=== PATIENT | male | born 1990 | race Caucasian/White ===

== ENCOUNTER 2020-04-09 03:43 | Emergency (ER) | payer BC ==
--- NOTE | 2020-04-09 03:52 | PDOC ---
Attending Attestation - Resident Resident Name: Maggy Briseno - ED Attending Attestation I have performed the following: I have examined & evaluated the patient, The case was reviewed & discussed with the resident, I agree w/resident's findings & plan - HPI HPI: 04/10/20 06:04 30 yo M PMH ADHD on Adderall presenting from home with reported tachycardia. States that he recently had his Adderall changed from 10mg to 15mg, took the higher dose for the first time yesterday morning. Drank three beers around 1999 and went to sleep. Woke up around 0200 (not unusual for him), then after waking, felt like his heart was racing. Checked HR on watch, was reported as 135 from baseline 65. Pt has a hx of anxiety. - Physicial Exam PE: 04/10/20 06:05 Normal exam normal ekg normal Heart rate - Medical Decision Making 04/10/20 06:05 Pt will be discharged; advised to follow with cardiology for Holter monitoring Discharge - Discharge Information Problems reviewed: Yes Clinical Impression/Diagnosis: Palpitations Condition: Stable Disposition: HOME - Follow up/Referral Referrals: Alexis Espinoza MD [Staff Physician] - - Patient Discharge Instructions Additional Instructions: You were seen with reported fast heart rate. Here in the ER, your vitals signs were normal, and your EKG did not show any acute abnormalities. Please follow up with your primary care doctor within one week. The number for a senior animal trainer is also listed in your paperwork, you may call to make an appointment. Return to the ER if you develop new or worsening symptoms. - Post Discharge Activity
--- NOTE | 2020-04-09 04:13 | PDOC ---
History of Present Illness - General Stated Complaint: TACHYCARDIA Time Seen by Provider: 04/09/20 03:51 - History of Present Illness Initial Comments: HPI: 04/09/20 04:06 30 yo M PMH ADHD on Adderall presenting from home with reported tachycardia. States that he recently had his Adderall changed from 10mg to 15mg, took the higher dose for the first time yesterday morning. Drank three beers around 1999 and went to sleep. Woke up around 0200 (not unusual for him), then after waking, felt like his heart was racing. Checked HR on watch, was reported as 135 from baseline 65. Grew anxious, came in. No cardiac history, FH with uncle who had heart attack in his late 40s. Specifically denies CP, SOB, N/V, diaphoresis. Endorses anxiety. ROS: GENERAL/CONSTITUTIONAL: denies fever, chills, diaphoresis, generalized weakness, malaise HEAD, EYES, EARS, NOSE AND THROAT: denies rhinorrhea, nasal congestion, throat pain, throat swelling NEUROLOGIC: denies headache, focal weakness, dizziness, unsteady gait, mental status changes CARDIOVASCULAR: endorses palpitations. Denies chest pain, syncope, irregular heart rate, lightheadedness, peripheral edema RESPIRATORY: denies cough, shortness of breath, dyspnea with exertion, wheezing GASTROINTESTINAL: denies abdominal pain, abdominal distension, nausea, vomiting, diarrhea, constipation, melena, hematochezia GENITOURINARY: denies dysuria, frequency MUSCULOSKELETAL: denies myalgia, arthralgia SKIN: denies rash, itching ENDOCRINE: denies unexplained weight gain, unexplained weight loss, heat intolerance, cold intolerance PSYCHIATRIC: endorses anxiety. Denies depression, suicidal or homicidal ideation, hallucinations PE: Gen: well-developed, well-nourished, appears anxious Neuro: AAOX4, CN II-XII intact HEENT: atraumatic, normocephalic Neck: trachea midline, supple CV: regular rate, regular rhythm, no murmurs, rubs, or gallops Pulm: CTA b/l, no wheezing Abd: soft, non-distended, non-tender MSK: full ROM, intact pulses Extr: no edema, no deformities Skin: warm, dry MDM: Young otherwise healthy male with reported tachycardia in setting of recent Adderall dose change and alcohol use. - EKG normal sinus at 71 bpm, NH 184, QRS 96, QTc 393. Incomplete RBBB. Will dc for further outpatient management, refer to cardiology. Past History - Medical History Allergies/Adverse Reactions: Allergies Allergy/AdvReac Type Severity Reaction Status Date / Time No Known Allergies Allergy Verified 04/09/20 04:15 Home Medications: Ambulatory Orders Dextroamphetamine/Amphetamine [Adderall 10 mg Tablet] 15 mg PO DAILY 04/09/20 Discharge - Discharge Information Problems reviewed: Yes Clinical Impression/Diagnosis: Palpitations Condition: Stable Disposition: HOME - Admission No - Follow up/Referral Referrals: Alexis Espinoza MD [Staff Physician] - - Patient Discharge Instructions Additional Instructions: You were seen with reported fast heart rate. Here in the ER, your vitals signs were normal, and your EKG did not show any acute abnormalities. Please follow up with your primary care doctor within one week. The number for a land lease information clerk is also listed in your paperwork, you may call to make an appointment. Return to the ER if you develop new or worsening symptoms. - Post Discharge Activity
[2020-04-09 04:15] VITALS: BP 124/79; PULSE 80; TEMP 98.4; BMI 24.3
--- OUTSIDE RECORDS SUMMARY | 2020-04-09 04:18 | XMS ---
:1990 Author Organization [facility] Support Name Relationship Address Phone [employer]CAST Unavailable [facility] [place], [place] HERBIE CASTILLO [address] [address] [place] [address] Re-disclosure Warning The records that you are about to access may contain information from federally- assisted alcohol or drug abuse programs. If such information is present, then the following federally mandated warning applies: This information has been disclosed to you from records protected by federal confidentiality rules (42 CFR part 2). The federal rules prohibit you from making any further disclosure of this information unless further disclosure is expressly permitted by the written consent of the person to whom it pertains or as otherwise permitted by 42 CFR part 2. A general authorization for the release of medical or other information is NOT sufficient for this purpose. The Federal rules restrict any use of the information to criminally investigate or prosecute any alcohol or drug abuse patient.The records that you are about to access may contain highly sensitive health information, the redisclosure of which is protected by Article 27-F of the [facility] Public Health law. If you continue you may haveaccess to information: Regarding HIV / AIDS; Provided by facilities licensed or operated by the [facility] Office of Mental Health; or Provided by the [facility] Office for People With Developmental Disabilities. If such information is present, then the following [facility] mandated warning applies: This information has been disclosed to you from confidential records which are protected by state law. State law prohibits you from making any further disclosure of this information without the specific written consent of the person to whom it pertains, or as otherwise permitted by law. Any unauthorized further disclosure in violation of state law may result in a fine or care home sentence or both. A general authorization for the release of medical or other information is NOT sufficient authorization for further disclosure. Insurance Providers Payer name Policy type / Policy ID Covered Covered green party's Policy Plan Coverage type green party ID relationship to [employer] OF [id number] [place] [id number]
--- NOTE | 2020-04-09 16:09 | EKG ---
Test Reason : Blood Pressure : / mmHG Vent. Rate : 071 BPM Atrial Rate : 071 BPM P-R Int : 184 ms QRS Dur : 096 ms QT Int : 362 ms P-R-T Axes : 068 047 057 degrees QTc Int : 393 ms NORMAL SINUS RHYTHM WITH SINUS ARRHYTHMIA INCOMPLETE RIGHT BUNDLE BRANCH BLOCK SEPTAL INFARCT , AGE UNDETERMINED ABNORMAL ECG NO PREVIOUS ECGS AVAILABLE Confirmed by MD King Daniel ([id number]) on 04/09/2020 4:09:04 PM Referred By: Confirmed By:Chris King MD
== END 2020-04-09 04:31 | disposition home or self-care (01) ==
LOC: JER 03:43
DX: R00.2 Palpitations (principal)
CPT/HCPCS: 93005; 93010; 99283-25